=== PATIENT | male | born 1965 | race Native Hawaiian/Other Pacific Islander ===

== ENCOUNTER 2017-01-13 06:22 | Emergency (ER) | payer OTHER ==
[~2017-01-13] VITALS: Ht 180.3 cm; Wt 57.2 kg
[~2017-01-13 06:22] MED LIST: BUDE1AER5 INH; CETI10TA PO; FLEXERIL5 MG PO; FLUT0.05 NAS; GABA300C2 PO; HYDR-2748 PO; KETOROLAC15 MG/ML IJ; LISI20TA31 OR; LISI5TAB10 PO; PHEN100C15 PO; PREDNISONE5 M1 OR; PROAIR HFA IN; SPIRIVA IN; TIZA4TAB5 PO; TRAM50TA PO
[2017-01-13 06:26] VITALS: TEMP 98.5
[2017-01-13 08:00] VITALS: BP 132/84
== END 2017-01-13 08:00 | disposition home or self-care (01) ==
LOC: ED 06:22
DX: L50.8 Other urticaria (principal)
CPT/HCPCS: 96374; 96375; 99284; J1100; J1200; J2780

== ENCOUNTER 2017-07-28 14:18 | Observation (INO) | payer OTHER ==
[~2017-07-28] VITALS: Ht 175.3 cm; Wt 54.6 kg
[2017-07-28 14:24] VITALS: BP 190/113; TEMP 100.2
[2017-07-28 16:08] LABS: PLATELET COUNT 195 K/uL (142-355)
[2017-07-28 16:38] LABS: POTASSIUM 4.2 mmol/L (3.6-5.2)
[2017-07-28 17:00] VITALS: BP 164/107
[2017-07-28 18:44] VITALS: BP 174/99; TEMP 98.8; Ht 175.3 cm; Wt 54.6 kg
[2017-07-28 20:25] VITALS: BP 133/73; TEMP 98.3
[2017-07-29] VITALS: BP 111/81; TEMP 98.1
[2017-07-29 09:02] LABS: POTASSIUM 4.6 mmol/L (3.6-5.2)
[2017-07-29 09:03] VITALS: BP 127/79; TEMP 98.2
[2017-07-29 09:10] LABS: PLATELET COUNT 176 K/uL (142-355)
[2017-07-29 12:00] VITALS: BP 125/78; TEMP 98.4
[2017-07-29] MEDS ORDERED: PRINIVIL5 MG OR (18:51)
--- NOTE | 2017-07-29 23:50 | NUR ---
COMPLAINTS OF ITCHING. ASSESSED PT AND GAVE PT BENADRYL 25 MG IM TO PTS' LEFT BUTTOCKS.
[2017-07-30] VITALS: BP 115/78; TEMP 98.5
[2017-07-30 04:00] VITALS: BP 118/79; TEMP 98.5
[2017-07-30] MEDS ORDERED: LEVAQUIN250 MG PO (11:09)
--- NOTE | 2017-07-30 13:53 | NUR ---
IV D/C'D. D/C INSTRUCTIONS GIVEN. FU WITH LOUISE STATON ON 08-03-17 AT 1000. PRESCRIPTION CALLED IN TO [facility]. PT HAS NO FUTHER QUESTIONS. PT AMBULATED OUT AT THIS TIME. NO PROBLEMS NOTED.
== END 2017-07-30 11:56 | disposition home or self-care (01) ==
LOC: ED 14:18 → MED/SURG 17:19
PROVIDERS: Emergency Medicine
DX: J18.8 Other pneumonia, unspecified organism (principal); J44.9 Chronic obstructive pulmonary disease, unspecified; I10 Essential (primary) hypertension; G40.802 Other epilepsy, not intractable, without status epilepticus; Z72.0 Tobacco use
CPT/HCPCS: 36415; 80053; 81000; 85027; 93005; 94640; 94664; 94760; 96365; 96366; 96367; 96372; 99220; 99284; G0378; J0456; J0696; J1100; J1200; J1650; J1956; J2920; J3490; J7120

== ENCOUNTER 2017-08-04 13:39 | Emergency (ER) | payer OTHER ==
[~2017-08-04] VITALS: Ht 180.3 cm; Wt 56.7 kg
[~2017-08-04 13:39] MED LIST changes: +LEVAQUIN250 MG PO; +PRINIVIL5 MG OR
[2017-08-04 13:47] VITALS: BP 137/92; TEMP 98.1
== END 2017-08-04 14:39 | disposition home or self-care (01) ==
LOC: ED 13:39
DX: K40.20 Bilateral inguinal hernia, without obstruction or gangrene, not specified as recurrent (principal)
CPT/HCPCS: 99282

== ENCOUNTER 2017-08-31 09:03 | Outpatient (CLI) | payer OTHER | END 2017-08-31 21:19 | disposition home or self-care (01) | LOC: RESP 09:03 | DX: R06.02 Shortness of breath (principal) | CPT/HCPCS: 94664 ==

== ENCOUNTER 2017-11-10 15:26 | Outpatient (CLI) | payer OTHER | END 2017-11-10 19:37 | disposition home or self-care (01) | LOC: RAD 15:26 | DX: M25.522 Pain in left elbow (principal); M25.521 Pain in right elbow ==

== ENCOUNTER → 2019-06-10 19:45 | Outpatient (CLI) | payer OTHER | END | disposition home or self-care (01) | LOC: AMB 19:45 | DX: Z04.1 Encounter for examination and observation following transport accident (principal) ==